=== PATIENT | male | born 1935 | race Caucasian/White ===

== ENCOUNTER → 2017-10-18 | Day surgery (SDC) | payer MEDICARE ==
[2016-06-09 17:30] VITALS: BP 108/66
[~2017-10-18] MED LIST: ADALAT CC60 M1 PO; COUMADIN 5MG5 MG/TAB PO; FLOMAX 0.40.4 MG/CAP PO; LUTEIN6 MG PO; ZESTORETIC 10-1 EACH PO
== END ==
LOC: MSO 08:22
DX: Z12.11 Encounter for screening for malignant neoplasm of colon (principal); Z86.010 Personal history of colon polyps; I10 Essential (primary) hypertension; I48.91 Unspecified atrial fibrillation; Z79.01 Long term (current) use of anticoagulants; Z85.54 Personal history of malignant neoplasm of ureter; Z90.5 Acquired absence of kidney
CPT/HCPCS: G0105; 00812; J2704; J7120

== ENCOUNTER → 2018-10-18 | Outpatient (CLI) | payer MEDICARE ==
[2016-06-09 17:30] VITALS: BP 108/66
== END ==
LOC: RAD 13:05 → LAB 13:09
PROVIDERS: Family Medicine
DX: I11.9 Hypertensive heart disease without heart failure (principal); R06.02 Shortness of breath; R09.89 Other specified symptoms and signs involving the circulatory and respiratory systems
CPT/HCPCS: Q9967

== ENCOUNTER → 2018-10-27 | Outpatient (CLI) | payer MEDICARE ==
[2016-06-09 17:30] VITALS: BP 108/66
== END ==
LOC: VAS 16:26 → RAD 16:45
DX: I48.2 Chronic atrial fibrillation (principal); I08.3 Combined rheumatic disorders of mitral, aortic and tricuspid valves; I27.20 Pulmonary hypertension, unspecified

== ENCOUNTER → 2020-11-20 | Outpatient (CLI) | payer MEDICARE ==
[2016-06-09 17:30] VITALS: BP 108/66
== END ==
LOC: VAS 10:03 → RAD 10:30
DX: I27.20 Pulmonary hypertension, unspecified (principal)

== ENCOUNTER 2024-07-05 11:10 | Emergency (ER) | payer MEDICARE ==
[~2024-07-05] VITALS: Ht 182.9 cm; Wt 103.3 kg
[2024-07-05] MEDS ORDERED: WARFARIN SOD5 MG (11:34)
[2024-07-05] MEDS ORDERED: POTASSIUM CHLO20 ME4 PO (11:34)
[2024-07-05] MEDS ORDERED: LISINOPRIL40 MG (11:34)
[2024-07-05] MEDS ORDERED: HYDROCHLOROTH12.5 M2 PO (11:35)
[2024-07-05] MEDS ORDERED: FLOMAX0.4 MG PO (11:35)
[2024-07-05] MEDS ORDERED: ATORVASTATIN CA10 MG PO (11:35)
[2024-07-05 12:17] LABS: BASO # 0.01 K/mm3 (0.02-0.10); EOS # 0.01 K/mm3 (0.04-0.40); EOS % 0.2 % (0.0-4.0); HEMATOCRIT 45.3 % (42.0-52.0); HEMOGLOBIN 14.9 g/dL (13.5-18.0); LYMPH# 0.63 K/mm3 (1.50-4.00); MEAN CELL VOLUME 92 fl (78-100); MEAN CORPUSCULAR HEMOGLOBIN 30 pg (27-31); MEAN CORPUSCULAR HGB CONC 33 g/dL (33-37); MEAN PLATELET VOLUME 12.7 fl (7.4-10.4); MONO # 0.65 K/mm3 (0.20-0.80); NEU # 4.14 K/mm3 (1.40-6.50); PLATELET COUNT 110 K/mm3 (130-400); RED BLOOD COUNT 4.92 M/mm3 (4.20-5.60); RED CELL DISTRIBUTION WIDTH 14.3 % (11.5-14.5); WHITE BLOOD COUNT 5.5 K/mm3 (4.8-10.8)
[2024-07-05 12:22] LABS: ALBUMIN 3.5 g/dL (3.4-4.8)
[2024-07-05 12:23] LABS: CALCIUM 8.8 mg/dL (8.3-10.5)
[2024-07-05 12:24] LABS: TOTAL PROTEIN 6.4 g/dL (6.2-8.1)
[2024-07-05 12:26] LABS: TOTAL BILIRUBIN 0.5 mg/dL (0.2-1.2)
[2024-07-05 12:38] LABS: TROPONIN-I 0.145 ng/mL (0.00-0.033)
[2024-07-05 13:25] LABS: PROTHROMBIN TIME 18.7 SECONDS (9.0-12.0)
[2024-07-05 14:00] VITALS: BP 130/88
== END 2024-07-05 14:15 | disposition left against medical advice (07) ==
LOC: ED 11:10
PROVIDERS: Family Medicine
DX: I21.4 Non-ST elevation (NSTEMI) myocardial infarction (principal); I50.9 Heart failure, unspecified; Z85.528 Personal history of other malignant neoplasm of kidney

== ENCOUNTER → 2024-09-25 | Outpatient (CLI) | payer MEDICARE ==
[~2024-09-25] MED LIST changes: +ATORVASTATIN CA10 MG PO; +FLOMAX0.4 MG PO; +HYDROCHLOROTH12.5 M2 PO; +LISINOPRIL40 MG; +POTASSIUM CHLO20 ME4 PO; +WARFARIN SOD5 MG
== END ==
LOC: VAS 15:34 → RAD 16:00
DX: I08.0 Rheumatic disorders of both mitral and aortic valves (principal); I77.89 Other specified disorders of arteries and arterioles; I48.19 Other persistent atrial fibrillation